=== PATIENT | male | born 1980 | race Caucasian/White ===

== ENCOUNTER 2023-09-17 11:03 | Emergency (ER) | payer BC, SELFPAY ==
[2023-09-17 11:05] VITALS: BP 158/113
[2023-09-17 11:24] VITALS: BMI 26.6
--- NOTE | 2023-09-17 12:14 | ED.GENMED ---
History of Present Illness
General
Chief Complaint: Male Genito-Urinary Symptoms
Source: patient
Exam Limitations: none
Time Seen by Provider: 09/17/23 11:42
Nursing documentation reviewed up to this point in time: agreed with
Travel History
Have you had any contact with someone who has COVID-19?: No
Do you have any symptoms of coronavirus? Fever > 100 degrees, chills, cough, shortness of breath, sore throat, loss of taste or smell, muscle aches, or headache?: No
History of Present Illness
History of Present Illness:
43-year-old male with past medical history of GERD, anxiety who presents to the emergency room for evaluation of testicular pain. Patient reports onset of symptoms 4 days ago and they have been constant since that time. He reports pain primarily
in the left testicle. He says pain is worse when he stands or moves around and somewhat better when he is sitting resting. He says that his left testicle is very tender to the touch. He has not noticed any significant amount of swelling. He has
not had any trauma to the testicle. He denies any dysuria, hematuria, change in urinary frequency. Denies any penile discharge. Denies any abdominal or flank pain. He denies similar symptoms in the past. He is in a monogamous relationship with
his but he is sexually active.
Review of Systems
Review of Systems
All Other Systems: ROS reviewed and negative except as documented in HPI and ROS
Constitutional: Denies fever or chills
ABD/GI: Denies abdominal pain, nausea or vomiting
: Reports other (Testicular pain); Denies dysuria, frequency, flank pain or bleeding
Phy Exam
Physical Exam
Physical Exam:
General: Awake, alert; no acute distress
Head: Normocephalic, atraumatic
Eyes: Conjunctiva normal
Throat: Airway intact, handling secretions
Neck: Trachea midline
Lungs: Breathing comfortably no distress, normal pulse ox on room air
Heart: Regular rate
Abd: Soft, non distended, nontender
: Normal testicular lie, he has some slight fullness and swelling of the scrotum on the left, tenderness of the epididymis but no testicular tenderness on the left, no testicular tenderness on the right, no appreciable testicular masses, no
inguinal hernia noted, positive Prehn sign, intact cremasteric reflexes
Neuro: No gross deficits
Extremities: Warm and well-perfused
Scores
Heart Failure Risk
Heart Failure Risk Score: Not Applicable
Heart Score for Chest Pain Patients
STEMI patient?: Not applicable
Withdrawal Assessment of Alcohol
Withdrawal Assessment Completed?: Not applicable
Course
Orders/Labs/Results
Orders:
Orders
09/17/23 11:08
US Scrotum Urgent
Comment:
Reason For Exam: L testicular pain
09/17/23 12:14
Chlamydia/GC by PCR Urgent
MAGI Source: Urine
Specimen Description:
Source:: URINE
Date Specimen was Collected: 09/17/23
Time Specimen was Collected: 12:24
09/17/23 12:50
Urinalysis Reflex To Culture Urgent
Date Specimen was Collected: 09/17/23
Time Specimen was Collected: 12:24
09/17/23 13:00
Sulfamethox./Trimethoprim Ds [Bactrim Ds 800 mg/160 mg] 1 tablet PO NOW STA
09/17/23 13:02
Ibuprofen [Motrin] 400 mg PO NOW STA
Vital Signs
Initial and Last Documented VS:
Initial Vital Signs
Temp Pulse Resp BP Pulse Ox
36.8 C 97 18 158/113 98
09/17/23 11:05 09/17/23 11:05 09/17/23 11:05 09/17/23 11:05 09/17/23 11:05
Last Documented Vital Signs
Temp Pulse Resp BP Pulse Ox
36.8 C 97 18 158/113 98
09/17/23 11:05 09/17/23 11:05 09/17/23 11:05 09/17/23 11:05 09/17/23 11:05
MDM/Problems Addressed
Differential Diagnosis Includes:
Epididymitis/orchitis, testicular torsion, inguinal hernia
MDM/Problems Addressed:
43-year-old male presents for evaluation of left scrotal pain for the past few days worse with moving around and better with sitting. Hypertensive but otherwise normal vitals. Exam as above. His physical exam and history seem most consistent with
acute epididymitis; will plan to send for an ultrasound to rule out testicular torsion although very low clinical suspicion. Will send a urinalysis. Will monitor closely reassess at the above.
Ultrasound reviewed and shows good flow to both testicles, no signs of testicular torsion. Clinically this is consistent with an acute epididymitis. Recommended scrotal support, NSAIDs and was started on course of antibiotics. Stable for
discharge will refer to urology for outpatient follow-up. Patient comfortable with this plan. Spoke about return precautions all questions answered.
*Radiology
Radiology exam reviewed: radiology read reviewed
*Pulse Oximetry
Patient hypoxic: no
*Critical Care Note
Total Time (30-74mins, 75-104mins- exclusive of procedures): Not Applicable
Data Reviewed
Source: patient
ED Attending Note
-
Portions of this chart may have been created with voice recognition software.� Occasional wrong word or��sound alike� substitutions may have occurred due to the inherent limitations of voice recognition software.
Discharge Plan
Departure
Patient with high blood pressure during this ER visit?: Yes
Discharge Problem:
Acute epididymitis, Pain in scrotum
Instructions: Epididymitis and orchitis
Prescriptions:
New
sulfamethoxazole-trimethoprim [Bactrim DS] 800-160 mg tablet
1 tab PO BID 10 Days Qty: 20 0RF
Referrals:
Gio Reid MD [Active] - Call in 1-3 days for appt (Urology)
Weston Cantu, DO [Family Provider] - Call in 1-3 days for appt
Activity Restrictions/Additional Instructions:
Thank you for visiting the Emergency Department at [facility].
1. Please schedule a follow up appointment as directed. Call first thing tomorrow morning to make an appointment.
2. If indicated, please take your medications as instructed and indicated on discharge paperwork.
3. If any of your symptoms do not improve, or persist, or become more severe within 6-12 hours, please return to the emergency department for further care.
4. Please return to the emergency department if you develop a headache, neck pain/stiffness, fever greater than 100.4F, chest pain, shortness of breath, persistent nausea, vomiting, slurred speech, difficulty walking, numbness/tingling, weakness,
signs of infection or any other symptoms that are worrisome to you.
Please call [phone] if you have any questions.
Interventions
Interventions:
*Risk Screen - Suicide Last Done: 09/17/23 11:24
*General Assessment Last Done: 09/17/23 11:05
*Neglect/Abuse Screening Last Done: 09/17/23 11:24
ED- Fall Risk Assessment Last Done: 09/17/23 11:24
*ED COVID-19 Vaccine History Last Done: 09/17/23 11:05
ED-Male Genitourinary Assessment Last Done: 09/17/23 11:24
Discharge Date and Time
Print Language: PUERTO RICAN
[2023-09-17] MEDS: MOTRIN 400 MG PO (13:12)
[2023-09-17] MEDS: BACTRIM DS 800 MG/160 MG 1 TABLET PO (13:12)
[2023-09-17 13:20] LABS: Urine Albumin Negative (Neg - Trace); Urine Bilirubin 1+ (Negative); Urine Character Clear (Clear); Urine Color Yellow; Urine Glucose Negative (Negative); Urine Ketone Trace (Negative); Urine Leukocyte Trace (Negative); Urine Nitrite Negative (Negative); Urine Occult Blood Negative (Negative); Urine Urobilinogen Negative (Neg - 1+)
[2023-09-17 13:46] LABS: Urine Mucus Many; Urine Red Blood Cell 0-2 /HPF (0-2); Urine White Cell 0-2 /HPF (0-5)
== END 2023-09-17 13:53 | disposition home or self-care (01) ==
LOC: EMR 11:03
PROVIDERS: EMERGENCY PHYSICIAN Emergency Medicine; FAMILY PHYSICIAN Family Medicine
DX: N45.1 Epididymitis (principal); N50.82 Scrotal pain; I10 Essential (primary) hypertension; K21.9 Gastro-esophageal reflux disease without esophagitis; F41.9 Anxiety disorder, unspecified
CPT/HCPCS: 99284; 76870; 81003; 81015; 93976

== ENCOUNTER 2023-12-05 11:40 | Emergency (ER) | payer BC, SELFPAY ==
[2023-12-05 11:43] VITALS: BP 159/108
--- NOTE | 2023-12-05 12:42 | ED.GENMED ---
History of Present Illness
General
Chief Complaint: Eye Problems
Source: patient
Exam Limitations: none
Time Seen by Provider: 12/05/23 12:13
Nursing documentation reviewed up to this point in time: agreed with
History of Present Illness
History of Present Illness:
43-year-old male past medical history of GERD anxiety presenting to the emergency department today with concerns of swelling to the left upper eyelid starting 4 days ago worsening over the past few days has been taking Keflex without improvement.
Denies any systemic symptoms changes in vision or difficulty or discomfort when moving his eyes.
Review of Systems
Review of Systems
Allergies reviewed?: Yes
All Other Systems: ROS reviewed and negative except as documented in HPI and ROS
Phy Exam
Physical Exam
Physical Exam:
GENERAL: Alert , in no apparent distress
EYE: Swelling discomfort to the left upper eyelid roughly 1 cm diameter to the mid upper eyelid with extending redness throughout the eyelid at the outer margin immediately. No surrounding redness or warmth to the remainder of the eyelids. Good
extraocular movements. Pupils equal and reactive
NECK: Supple, no significant adenopathy.
ENT: o/p clr, mmm.
CARDIAC: Regular rate and rhythm .
LUNGS: Clear breath sounds bilaterally, no acute respiratory distress, no wheezes/rales/rhonchi
ABDOMEN: Soft, without focal tenderness, no r/g, no cvat
NEUROLOGICAL: Alert and oriented, no focal neuro deficits
SKIN: Warm and dry, skin intact.
MUSCULOSKELETAL: No edema, well perfused.
PSYCH: Normal and appropriate interaction.
Course
Orders/Labs/Results
Orders:
Orders
12/05/23 12:37
Amoxicillin 875 mg/Clav 125 mg [Augmentin 875 mg/125 mg] 1 tablet PO NOW STA
Vital Signs
Initial and Last Documented VS:
Initial Vital Signs
Temp Pulse Resp BP Pulse Ox
98.1 F 86 18 159/108 95
12/05/23 11:43 08/11/24 11:43 12/05/23 11:43 12/05/23 11:43 12/05/23 11:43
Last Documented Vital Signs
Temp Pulse Resp BP Pulse Ox
98.1 F 86 18 159/108 95
12/05/23 11:43 12/05/23 11:43 12/05/23 11:43 12/05/23 11:43 12/05/23 11:43
MDM/Problems Addressed
MDM/Problems Addressed:
43-year-old male presenting to the emergency department today with concerns of swelling to the left upper eyelid over the past 4 days or so. Appears to be consistent with hordeolum. There is noes extending swelling or redness does not appear to be
consistent with preseptal cellulitis. Normal extraocular movements no discomfort with movements making orbital cellulitis very unlikely. He has no risk factors for rapid progression of infection. He was advised to use warm compresses he was
continued on antibiotics but otherwise was advised for Optho follow-up as needed if symptoms or not improving over the next week or so.
*Critical Care Note
Total Time (30-74mins, 75-104mins- exclusive of procedures): Not Applicable
ED Attending Note
-
Portions of this chart may have been created with voice recognition software.� Occasional wrong word or��sound alike� substitutions may have occurred due to the inherent limitations of voice recognition software.
Discharge Plan
Departure
Patient Disposition: Home (Routine Discharge)
Date of Disposition: 12/05/23
Time of Disposition: 12:43
Patient with high blood pressure during this ER visit?: No
Condition: Good
Covid-19: Not Applicable
Discharge Problem:
Hordeolum
Instructions: Stye
Prescriptions:
New
amoxicillin-pot clavulanate 875-125 mg tablet
1 tab PO Q12H 7 Days Qty: 14 0RF
erythromycin 5 mg/gram (0.5 %) ointment
1 applic ophthalmic (eye) DAILY Qty: 3.5 0RF
No Action
sulfamethoxazole-trimethoprim [Bactrim DS] 800-160 mg tablet
1 tab PO BID 10 Days Qty: 20 0RF
Referrals:
Weston Cantu, DO [Family Provider] -
Activity Restrictions/Additional Instructions:
You came to the emergency department today with concerns of swelling to your left upper eyelid. This is likely a hordeolum that is treated with warm compresses and hopefully will resolve on its own over the next week or so. If it is not resolving
you need to see ophthalmology. Otherwise you can take Augmentin twice daily as well as the antibiotic ointment. Return to the emergency department for any progression of symptoms.
Interventions
Interventions:
*Risk Screen - Suicide Last Done: 12/05/23 11:43
*General Assessment Last Done: 12/05/23 11:43
*Neglect/Abuse Screening Last Done: 12/05/23 11:43
*Nursing Disposition Last Done: 12/05/23 13:01
Discharge Date and Time
Discharge Date/Time: 12/05/23 13:01
Print Language: MALTESE
[2023-12-05] MEDS: AUGMENTIN 875 MG/125 MG 1 TABLET PO (12:46)
== END 2023-12-05 13:01 | disposition home or self-care (01) ==
LOC: EMR 11:40
PROVIDERS: EMERGENCY PHYSICIAN Emergency Medicine; FAMILY PHYSICIAN Family Medicine
DX: H00.014 Hordeolum externum left upper eyelid (principal); K21.9 Gastro-esophageal reflux disease without esophagitis; F41.9 Anxiety disorder, unspecified
CPT/HCPCS: 99283